=== PATIENT | female | born 1955 | race Hispanic/Latino ===

== ENCOUNTER 2016-10-10 11:58 | Outpatient (CLI) | payer BC, OTHER | END 2016-10-10 11:59 | disposition home or self-care (01) | LOC: BURLAB 11:58 | PROVIDERS: ATTEND Family Medicine | DX: M25.50 Pain in unspecified joint (principal) | CPT/HCPCS: 36415; 82306; 84550; 86038; 86140; 86430 ==

== ENCOUNTER 2017-09-10 07:56 | Outpatient (CLI) | payer BC, OTHER ==
--- NOTE | 2017-09-10 12:44 | RAD ---
CHEST TWO VIEWS: Date: 09-10-17 Comparison: None. FINDINGS: The heart is normal in size and the lungs are clear. No infiltrate or effusion was seen. There is no vascular congestion or edema. The bony structures shows no acute findings. Some minor thoracic scolio sis was noted. There is probably a calcified granuloma in the left lung apex. IMPRESSION: No acute thoracic finding. POS: [facility]
== END 2017-09-10 07:57 | disposition home or self-care (01) ==
LOC: BURRAD 07:56
PROVIDERS: ATTEND Family Medicine
DX: R07.82 Intercostal pain (principal)
CPT/HCPCS: 71046